=== PATIENT | male | born 1995 | race Hispanic/Latino ===

== ENCOUNTER 2018-01-22 20:59 | Emergency (ER) | payer OTHER ==
[2018-01-22] MEDS: ACETAMINOPHEN 325 MG TAB PO (23:15)
[2018-01-22] MEDS: ONDANSETRON 4 MG ORAL DISINTEGRATING TAB (Q0162 PER 1MG) PO ×3 (23:15)
== END 2018-01-22 23:39 | disposition home or self-care (01) ==
LOC: M ED 20:59
DX: S06.0X0A Concussion without loss of consciousness, initial encounter (principal); V49.60XA Unspecified car occupant injured in collision with unspecified motor vehicles in traffic accident, initial encounter; Y92.410 Unspecified street and highway as the place of occurrence of the external cause
CPT/HCPCS: Q0162

== ENCOUNTER 2018-08-03 13:49 | Emergency (ER) | payer OTHER ==
[~2018-08-03] VITALS: Ht 180.3 cm; Wt 83.2 kg
--- NOTE | 2018-08-03 15:52 | REP ---
CT Head without contrast HISTORY: Altered mental status COMPARISON: 01/22/2018 There is no intraparenchymal hemorrhage, acute infarct, mass or midline shift. The ventricular system is normal in appearance. A cavum septi pellucidi is present There is no extra cerebral collection. There is no fracture. The visualized sinuses are clear. IMPRESSION: There is no intracranial lesion. Electronically Signed by Lito Hansen MD 08/03/2018 03:43 P
--- NOTE | 2018-08-03 15:54 | REP ---
CT cervical spine without contrast HISTORY: Altered mental status COMPARISON: None There is no acute fracture or subluxation. There is no disc bulge or herniation. The spinal canal and neural foramina are patent. The intervertebral discs and vertebral bodies are normal in height. IMPRESSION: There is no acute fracture or subluxation. Electronically Signed by Lito Hansen MD 08/03/2018 03:45 P
[2018-08-03 15:57] LABS: BASO # 0.1 10^3/uL (0.0-0.2); BASO % 1.2 % (0.0-1.0); EOS # 0.1 10^3/uL (0.0-0.50); HEMATOCRIT 45.1 % (42.0-52.0); HEMOGLOBIN 15.1 g/dl (13.5-17.5); LYMPH # 2.6 10^3/uL (1.5-6.5); LYMPH % 34.3 % (24.0-44.0); MEAN CORPUSCULAR HGB CONC 33.5 g/dl (32.0-36.5); MEAN CORPUSCULAR VOLUME 86.7 fl (80.0-96.0); MONO # 0.6 10^3/uL (0.0-0.8); MONO % 7.8 % (0.0-5.0); NEUTROPHILS # 4.3 10^3/uL (1.8-7.7); NEUTROPHILS % 55.4 % (36.0-66.0); PLATELET COUNT, AUTOMATED 319 10^3/uL (150-450); WHITE BLOOD COUNT 7.7 10^3/uL (4.0-10.0)
--- NOTE | 2018-08-03 16:23 | REP ---
Portable chest, 04:08 p.m., single AP view, the patient is upright: There are no comparisons. The lung andrew are clear. The cardiac size is normal. The toby, mediastinum, and skeletal structures are unremarkable. Impression: Negative portable chest. Electronically Signed by Vincent Ribeiro MD 08/03/2018 04:15 P
[2018-08-03 16:33] LABS: ACETAMINOPHEN LEVEL < 2.0 UG/ML (10.0-30.0); ALBUMIN 4.5 GM/DL (3.2-5.2); ALT/SGPT 36 U/L (12-78); BILIRUBIN,DIRECT 0.2 MG/DL (0.0-0.2); BILIRUBIN,TOTAL 0.9 MG/DL (0.2-1.0); BLOOD UREA NITROGEN 20 MG/DL (7-18); CALCIUM LEVEL 9.1 MG/DL (8.5-10.1); CARBON DIOXIDE LEVEL 27 MEQ/L (21-32); CHLORIDE LEVEL 105 MEQ/L (98-107); CPK CREATINE PHOSPHOKINASE 245 U/L (39-308); CREATININE FOR GFR 1.05 MG/DL (0.70-1.30); ETHYL ALCOHOL (ETHANOL) < 0.003 % (0.000-0.010); GLOMERULAR FILTRATION RATE > 60.0 (>60); GLUCOSE, FASTING 91 MG/DL (70-100); MB/CK RELATIVE INDEX 0.86 (< OR =4); SALICYLATE LEVEL < 1.7 MG/DL (5.0-30.0); SODIUM LEVEL 141 MEQ/L (136-145); TOTAL PROTEIN 7.5 GM/DL (6.4-8.2); TROPONIN I < 0.02 NG/ML (< 0.10)
[2018-08-03 16:48] LABS: AMPHETAMINES LEVEL URINE NEGATIVE (NEGATIVE); BARBITURATES URINE NEGATIVE (NEGATIVE); BENZODIAZEPINES URINE NEGATIVE (NEGATIVE); CANNABINOIDS URINE NEGATIVE (NEGATIVE); COCAINE METABOLITE URINE NEGATIVE (NEGATIVE); METHADONE URINE NEGATIVE (NEGATIVE); OPIATES URINE NEGATIVE (NEGATIVE); PHENCYCLIDINE URINE NEGATIVE (NEGATIVE)
[2018-08-03] MEDS ORDERED: DEPA500T2 PO (17:39)
[2018-08-03 17:53] VITALS: BP 127/75
--- NOTE | 2018-08-03 19:40 | ECGEPIP ---
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
[2018-08-04] MEDS ORDERED: ZOFR4TAB16 PO (16:25)
== END 2018-08-03 18:02 | disposition home or self-care (01) ==
LOC: EEVIPCON 13:49 → M ED 13:49
DX: R56.9 Unspecified convulsions (principal); Z79.899 Other long term (current) drug therapy
CPT/HCPCS: 36415; 70450; 71045; 72125; 80048; 80076; 80307; 81001; 82140; 82550; 82553; 84443; 84484; 85025; 93005; 93041; 94760; 99285; G0480

== ENCOUNTER 2018-08-04 12:00 | Emergency (ER) | payer OTHER ==
[~2018-08-04] VITALS: Ht 180.3 cm; Wt 79.5 kg
[~2018-08-04 12:00] MED LIST: DEPA500T2 PO
[2018-08-04] MEDS ORDERED: ONDANSETRON 4 MG ORAL DISINTEGRATING TAB (Q0162 PER 1MG) PO ONE (12:30)
[2018-08-04 12:47] LABS: HEMATOCRIT 45.6 % (42.0-52.0); HEMOGLOBIN 15.5 g/dl (13.5-17.5); MEAN CORPUSCULAR HEMOGLOBIN 28.8 pg (27.0-33.0); MEAN CORPUSCULAR VOLUME 84.6 fl (80.0-96.0); PLATELET COUNT, AUTOMATED 339 10^3/uL (150-450); RED BLOOD COUNT 5.39 10^6/uL (4.30-6.10); WHITE BLOOD COUNT 6.6 10^3/uL (4.0-10.0)
[2018-08-04 13:27] LABS: ACETAMINOPHEN LEVEL < 2.0 UG/ML (10.0-30.0); ALBUMIN 4.5 GM/DL (3.2-5.2); ALT/SGPT 34 U/L (12-78); BILIRUBIN,DIRECT 0.2 MG/DL (0.0-0.2); BILIRUBIN,TOTAL 0.9 MG/DL (0.2-1.0); BLOOD UREA NITROGEN 15 MG/DL (7-18); CARBON DIOXIDE LEVEL 29 MEQ/L (21-32); CHLORIDE LEVEL 105 MEQ/L (98-107); GLOMERULAR FILTRATION RATE > 60.0 (>60); GLUCOSE, FASTING 98 MG/DL (70-100); POTASSIUM SERUM 4.1 MEQ/L (3.5-5.1); SALICYLATE LEVEL < 1.7 MG/DL (5.0-30.0); SODIUM LEVEL 141 MEQ/L (136-145); TOTAL PROTEIN 8.1 GM/DL (6.4-8.2)
[2018-08-04 13:31] LABS: AMPHETAMINES LEVEL URINE NEGATIVE (NEGATIVE); BARBITURATES URINE NEGATIVE (NEGATIVE); BENZODIAZEPINES URINE NEGATIVE (NEGATIVE); CANNABINOIDS URINE NEGATIVE (NEGATIVE); COCAINE METABOLITE URINE NEGATIVE (NEGATIVE); METHADONE URINE NEGATIVE (NEGATIVE); OPIATES URINE NEGATIVE (NEGATIVE); PHENCYCLIDINE URINE NEGATIVE (NEGATIVE)
[2018-08-04] MEDS ORDERED: ZOFR4TAB16 PO (16:25)
[2018-08-04 20:08] VITALS: BP 124/64
--- NOTE | 2018-08-05 20:52 | ECGEPIP ---
Stationary ECG Study [facility] - ED Test Date: 2018-08-04 Pat Name: KARLA BELLA Department: Room: - Gender: M Hay Baler: JDeb : 1995 Requested By: LIV PERSAUD Order Number: [id number] Reading MD: Ava Schmitz Measurements Intervals [place] Rate: 65 P: 56 OR: 160 QRS: 42 QRSD: 88 T: 12 QT: 430 QTc: 450 Interpretive Statements SINUS RHYTHM SIMILAR 08/03/18 Electronically Signed On 08-05-2018 20:51:31 EDT by Ava Schmitz
== END 2018-08-04 20:09 | disposition short-term general hospital (02) ==
LOC: M ED 12:00
DX: F32.9 Major depressive disorder, single episode, unspecified (principal); R45.851 Suicidal ideations; Z79.899 Other long term (current) drug therapy
CPT/HCPCS: 80048; 80076; 80307; 84443; 85027; 93005; 99285; G0480; Q0162

== ENCOUNTER 2018-12-04 13:39 | Emergency (ER) | payer OTHER ==
[~2018-12-04] VITALS: Ht 180.3 cm; Wt 91.4 kg
[~2018-12-04 13:39] MED LIST changes: +ZOFR4TAB16 PO
[2018-12-04] MEDS ORDERED: DIVA500T9 (13:46)
--- NOTE | 2018-12-04 14:35 | REP ---
Left elbow for views : There is no fracture or dislocation. Mineralization and joint spaces are normal. There are no calcifications or foreign bodies. Impression: Negative left elbow . Electronically Signed by Vincent Ribeiro MD 12/04/2018 02:27 P
[2018-12-04] MEDS ORDERED: LIDOCAINE W/EPINEPHRINE 1% 20ML VIAL SC ONE (15:30)
[2018-12-04] MEDS ORDERED: AUGM875T28 PO (15:43)
[2018-12-04 15:54] VITALS: BP 126/78
== END 2018-12-04 15:55 | disposition home or self-care (01) ==
LOC: M ED 13:39
DX: S51.031A Puncture wound without foreign body of right elbow, initial encounter (principal); W19.XXXA Unspecified fall, initial encounter; Y92.138 Other place on military base as the place of occurrence of the external cause; Y93.B9 Activity, other involving muscle strengthening exercises; R56.9 Unspecified convulsions; M54.9 Dorsalgia, unspecified